=== PATIENT | female | born 1970 | race Two or more races ===

== ENCOUNTER 2018-06-11 07:06 | Day surgery (SDC) | payer MEDICAID ==
[~2018-06-11 07:06] MED LIST: Sodium Chloride 0.9% 10 ML Syringe FLUSH PRN; Sodium Chloride 0.9% 2.5 ML Syringe FLUSH PRN; ceFAZolin 1 GM in Premix Bag 1 BAG IV ONE
[2018-06-11] MEDS ORDERED: Bupivacaine 0.5% 30 ML SDV ONE (07:35)
[2018-06-11] MEDS ORDERED: Midazolam 1 MG/ML 2 ML SDV ONE ×2 (07:35→08:25)
[2018-06-11] MEDS ORDERED: fentaNYL 100 MCG/2 ML SDV ONE ×2 (07:36→08:39)
[2018-06-11] MEDS ORDERED: Lidocaine 2% 5 ML SDV ONE (07:37)
[2018-06-11] MEDS ORDERED: Propofol 200 MG/20 ML SDV ONE (07:40)
[2018-06-11] MEDS ORDERED: Rocuronium 10 MG/ML 10 ML Syringe ONE (07:41)
[2018-06-11] MEDS ORDERED: Scopolamine 1.5 MG Transdermal Patch TRDERM PRN (07:45)
--- NOTE | 2018-06-11 07:47 | PCM.PREANE ---
Preanesthetic Assessment - Anesthesia/Transfusion/Family Hx Anesthesia History: Prior Anesthesia Without Reaction Family History of Anesthesia Reaction: No Transfusion History: No Prior Transfusion(s) Intubation History: Unknown - Review of Systems General: No Symptoms Pulmonary: No Symptoms Cardiovascular: No Symptoms Gastrointestinal: Abdominal Pain Neurological: No Symptoms Other: Reports: None - Physical Assessment O2 Sat by Pulse Oximetry: 98 Respiratory Rate: 16 Vital Signs: Last Vital Signs Temp 36.5 C 06/11/18 07:44 Pulse 58 L 06/11/18 07:44 Resp 16 06/11/18 07:44 BP 137/66 06/11/18 07:44 Pulse Ox 98 06/11/18 07:44 Height: 1.52 m Weight: 56.245 kg ASA Class: 2 Mental Status: Alert & Oriented x3 Airway Class: Mallampati = 2 Dentition: Reports: Normal Dentition (uneven edges on front teeth) Thyro-Mental Finger Breadths: 3 Mouth Opening Finger Breadths: 3 ROM/Head Extension: Full Lungs: Clear to Auscultation, Normal Respiratory Effort Cardiovascular: Regular Rate, Regular Rhythm - Lab Values: Laboratory Last Values Urine HCG, Qual NEGATIVE (NEGATIVE) 06/11/18 07:20 - Allergies Allergies/Adverse Reactions: Allergies Allergy/AdvReac Type Severity Reaction Status Date / Time No Known Allergies Allergy Verified 06/10/18 10:33 - Blood Blood Available: No - Anesthesia Plan Pre-Op Medication Ordered: None - Acknowledgements Anesthesia Type Planned: General Anesthesia Pt an Appropriate Candidate for the Planned Anesthesia: Yes Alternatives and Risks of Anesthesia Discussed w Pt/Guardian: Yes Pt/Guardian Understands and Agrees with Anesthesia Plan: Yes PreAnesthesia Questionnaire HEENT History: Reports: Other (See Below) Other HEENT History: wears glasses Cardiovascular History: Reports: High Cholesterol Gastrointestinal History: Reports: Cholelithiasis, GERD 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: Endocrine/Metabolic History: Reports: Diabetes, Type II - Past Surgical History Female Surgical History: Reports: Hysterectomy - SUBSTANCE USE Smoking Status *Q: Never Smoker Recreational Drug Use History: No - HOME MEDS Home Medications: Home Meds Empagliflozin [Jardiance] 25 mg PO DAILY 06/10/18 [History] Simvastatin 10 mg PO DAILY 06/10/18 [History] metFORMIN [Glucophage] 500 mg PO Q12H 06/10/18 [History] - CURRENT (IN HOUSE) MEDS Current Meds: Current Medications Lactated Ringer's (Ringers, Lactated) 1,000 mls @ 125 mls/hr IV ASDIRECTED JENNY Sodium Chloride (Saline Flush) 10 ml FLUSH ASDIRECTED PRN PRN Reason: Keep Vein Open Sodium Chloride (Saline Flush) 2.5 ml FLUSH ASDIRECTED PRN PRN Reason: Keep Vein Open Discontinued Medications Bupivacaine HCl (Marcaine 0.5%) Confirm Administered Dose 30 ml .ROUTE .STK-MED ONE Stop: 06/11/18 07:36 Fentanyl (Sublimaze) Confirm Administered Dose 100 mcg .ROUTE .STK-MED ONE Stop: 06/11/18 07:37 Cefazolin Sodium/Dextrose 1 gm (/ Premix) 50 mls @ 100 mls/hr IV ONETIME ONE Stop: 06/10/18 17:57 Lidocaine (Xylocaine-Mpf 2%) Confirm Administered Dose 5 ml .ROUTE .STK-MED ONE Stop: 06/11/18 07:38 Midazolam HCl (Versed 1 Mg/Ml) Confirm Administered Dose 2 mg .ROUTE .STK-MED ONE Stop: 06/11/18 07:36 Propofol (Diprivan 20 Ml) Confirm Administered Dose 200 mg .ROUTE .STK-MED ONE Stop: 06/11/18 07:41
[2018-06-11] MEDS: Lactated Ringers 1,000 ML IV SCH ×2 (07:49→17:09)
[2018-06-11] MEDS ORDERED: Ondansetron 4 MG/2 ML SDV ONE ×3 (08:33→09:39)
[2018-06-11] MEDS ORDERED: Dexamethasone 4 MG/ML 5 ML MDV ONE (08:35)
[2018-06-11] MEDS ORDERED: Labetalol 100 MG/20 ML MDV ONE (08:58)
[2018-06-11] MEDS ORDERED: Arista AH Absorbable Hemostat ONE (09:34)
[2018-06-11] MEDS ORDERED: Glycopyrrolate 0.2 MG/ML SDV ONE (09:38)
[2018-06-11] MEDS ORDERED: Neostigmine Methylsulfate 1 MG/ML 5 ML Syringe ONE (09:38)
[2018-06-11] MEDS ORDERED: diphenhydrAMINE 50 MG/ML SDV IVPUSH PRN (10:08)
[2018-06-11] MEDS ORDERED: HYDROmorphone 2 MG/ML SDV IVPUSH PRN (10:08)
[2018-06-11] MEDS ORDERED: Promethazine 25 MG/ML SDV IM PRN (10:08)
[2018-06-11] MEDS ORDERED: Ondansetron 4 MG/2 ML SDV IVPUSH PRN (10:08)
[2018-06-11] MEDS ORDERED: Piperacillin/Tazobactam 3.375 GM in Sodium Chloride 0.9% 50 ML IV SCH (10:15)
--- NOTE | 2018-06-11 10:19 | PCM.OPNOTE ---
- General Post-Op/Procedure Note Date of Surgery/Procedure: 06/11/18 Operative Procedure(s): Laparoscopic cholecystectomy Findings: Gangrenous cholecystitis with hydrops Pre Op Diagnosis: Symptomatic cholecystitis Post-Op Diagnosis: Gangrenous cholecystitis Anesthesia Technique: General ET Tube Primary Surgeon: Sri Navarrete Fluid Replacement, Intraop: 1,000 Output, Urine Amount: 350 EBL in mLs: 50 Condition: Good
[2018-06-11] MEDS ORDERED: HYDROmorphone 2 MG/ML Syringe ONE (10:41)
--- NOTE | 2018-06-11 10:57 | PCM.POSTAN ---
POST ANESTHESIA ASSESSMENT - MENTAL STATUS Mental Status: Alert, Oriented - RESPIRATORY Respiratory Status: Respiratory Rate WNL, Airway Patent, O2 Saturation Stable - CARDIOVASCULAR CV Status: Pulse Rate WNL, Blood Pressure Stable - GASTROINTESTINAL GI Status: No Symptoms - PAIN Pain Score: 3 - POST OP HYDRATION Hydration Status: Adequate & Stable - OBSERVATIONS Free Text/Narrative:: no anesthesia problems
--- NOTE | 2018-06-11 12:09 | OR ---
SURGEON: YRAN IQBAL MD DATE OF PROCEDURE: 06/11/2018 PREOPERATIVE DIAGNOSIS: Symptomatic cholelithiasis. POSTOPERATIVE DIAGNOSES: 1. Intraabdominal adhesions. 2. Gangrenous cholecystitis. PROCEDURE PERFORMED: 1) Laparoscopic cholecystectomy. 2) Lysis of intra-abdominal adhesions ANESTHESIA: General endotracheal. FLUIDS: 1000 mL crystalloid. URINE OUTPUT: 350 mL. ESTIMATED BLOOD LOSS: 50 mL. FINDINGS: Necrotic and inflamed gallbladder containing multiple stones. Bile appeared hydropic. Multiple intraabdominal adhesions in the right upper quadrant. COMPLICATIONS: None. INDICATIONS: The patient is a 48-year-old diabetic female who presented with right upper quadrant pain. Right upper quadrant ultrasound revealed cholelithiasis. The patient and I discussed the need for a laparoscopic, possible open cholecystectomy. We discussed the procedure, expected perioperative course, and the risks including bleeding, infection, or damage to surrounding structures. The patient verbalized understanding and wishes to proceed. PROCEDURE IN DETAIL: The patient was brought into the OR and placed on the OR table in supine position. A time-out was completed verifying the patient's name, age, date of , allergies, and procedure to be performed. General endotracheal anesthesia was induced. The left arm was tucked at the patient's side and a Chadwick catheter placed. The abdomen was prepped and draped in usual standard fashion. I anesthetized the supraumbilical midline with 0.5% Marcaine plain. An 11 blade was used to make a 2 cm incision above the umbilicus. Cautery was used to dissect down into the level of subcutaneous fat. I bluntly dissected down to the level of the fascia. The fascia was elevated with Faustina's and incised sharply with the Metzenbaum scissors. A 12-mm Hema trocar was placed in the abdomen and the abdomen insufflated to a pressure of 12 mmHg. A 5-mm 30 degree scope was inserted into the abdomen and I inspected the area underneath my initial trocar placement. No damage to surrounding structures was noted. The patient was placed into reverse Trendelenburg position and airplaned slightly to the left. 5-mm trocars were placed under direct visualization in the following locations, one in the epigastric area and one 2 fingerbreadths below the right subcostal margin in the midclavicular line. I was unable to place my right flank port at first due to intraabdominal adhesions along the abdomen on the right side. Hook cautery and gentle blunt dissection were used to clear these adhesions away. Once this was performed, I was then able to place my 5 mm trocar along the right flank without difficulty. I did anesthetize the peritoneum along this side with 0.5% Marcaine plain to allow for better pain control postoperatively. I then turned my attention to the gallbladder. I was then able to initially grasp the gallbladder due to dense adhesions between the omentum and the gallbladder itself. Using hook cautery and gentle blunt dissection, I was able to sweep these adhesions down. I then grasped the dome of the gallbladder with an atraumatic grasper through the right lateral flank port and elevated it cranially. Again, there were dense adhesions along the proximal half of the gallbladder. I was able to sweep these away and identify the infundibulum. The infundibulum, however, was encased in a thickened rind of inflamed fat. I took down the medial and lateral attachments of the sides of the gallbladder to the liver bed. While doing this, I got into the gallbladder. Clear hydropic bile was spilled into the abdomen. This did decompress the gallbladder to where I could better manipulate the infundibulum. Using blunt dissection, I was able to clear away the adhesions around the cystic duct and artery. While attempting to clear away my cystic plate, the gallbladder wall kept tearing and falling apart, consistent with gangrenous cholecystitis. However, I was able to clear away enough of the proximal cystic plate to achieve my critical view. I doubly clipped and ligated my cystic duct and artery. I then attempted to remove the gallbladder from the remainder of the cystic plate. Once I was alf down with this, the body of the gallbladder tore away in half. The proximal half of the gallbladder was placed in an EndoCatch bag and removed through the supraumbilical port site. The gallbladder was full of stones and these spilled into the abdomen. I first concentrated on removing the top half of the gallbladder from the cystic bed. Using electrocautery, I was able to take the remainder of the gallbladder off the liver bed in a dome down fashion. I then placed this piece of the gallbladder and all of the gallstones that had spilled into the abdomen in an EndoCatch bag and removed it through the supraumbilical port site again. I then reinspected my operative field. The liver bed itself was hemostatic other than along the edges. I irrigated the abdomen with 3 L of normal saline until it ran clear. I then placed Ashli in the liver bed and monitored it for hemostasis. After several minutes, all the bleeding appeared to be done. A 10- mm round Siva drain was placed into the abdomen and along the right upper quadrant under the cystic plate. This was brought out through the right lateral flank port. It was secured to the skin with 2-0 silk. I then removed the 2 other 5 mm trocars under direct visualization and allowed the abdomen to desufflate. The supraumbilical port was removed as well. The fascia at the supraumbilical port site was closed with interrupted [id number] 0 Vicryl sutures. Given the spillage of bile and stones, I closed the skin with hailee. The skin at the 5 mm trocar sites was closed with hailee as well. Sterile dressings were applied. All counts were complete and correct at the end of the case. The patient tolerated the procedure well and was taken to PACU in stable condition. MOO SAMANIEGO /[id number] CHAN
[2018-06-11] MEDS ORDERED: HYDROmorphone 1 MG/ML Syringe IVPUSH PRN (14:16)
[2018-06-11] MEDS: Piperacillin/Tazobactam 3.375 GM in Sodium Chloride 0.9% 50 ML IV SCH ×2 (14:33→21:19)
[2018-06-11] MEDS: Acetaminophen/oxyCODONE 325-5 MG Tab PO PRN (15:40)
[2018-06-11] MEDS: Insulin Aspart 100 Units/ML 3 ML Pen SUBCUT SCH (21:24)
[2018-06-12] MEDS: Piperacillin/Tazobactam 3.375 GM in Sodium Chloride 0.9% 50 ML IV SCH ×2 (03:00→08:22)
[2018-06-12] MEDS: Acetaminophen/oxyCODONE 325-5 MG Tab PO PRN ×2 (03:05→09:32)
[2018-06-12 05:49] LABS: CHLORIDE,CL 103 mmol/L (98-107); SODIUM,NA 136 mmol/L (136-145)
--- NOTE | 2018-06-12 07:05 | PCM48HPAN ---
Post Anesthesia Note - EVALUATION WITHIN 48HRS OF ANESTHETIC Vital Signs in Normal Range: Yes Patient Participated in Evaluation: Yes Respiratory Function Stable: Yes Airway Patent: Yes Cardiovascular Function Stable: Yes Hydration Status Stable: Yes Pain Control Satisfactory: Yes Nausea and Vomiting Control Satisfactory: Yes Mental Status Recovered: Yes Resp Rate: 16
[2018-06-12] MEDS: Insulin Aspart 100 Units/ML 3 ML Pen SUBCUT SCH (08:08)
--- NOTE | 2018-06-12 11:00 | PCM.SURGPN ---
- General Info Date of Service: 06/12/18 Date of Surgery/Procedure: 06/11/18 POD#: 1 Functional Status: Reports: Pain Controlled, Tolerating Diet, Ambulating, Urinating, Incentive Spirometry. Denies: New Symptoms - Review of Systems General: Reports: No Symptoms HEENT: Reports: No Symptoms Pulmonary: Reports: No Symptoms Gastrointestinal: Reports: No Symptoms Genitourinary: Reports: No Symptoms Musculoskeletal: Reports: No Symptoms Skin: Reports: No Symptoms - Patient Data Vitals - Most Recent: Last Vital Signs Temp 36.8 C 06/12/18 07:59 Pulse 62 06/12/18 07:59 Resp 18 06/12/18 07:59 BP 98/56 L 06/12/18 07:59 Pulse Ox 95 06/12/18 03:45 Weight - Most Recent: 56.245 kg I&O - Last 24 Hours: Intake & Output 06/11/18 06/12/18 06/12/18 22:59 06:59 14:59 Intake Total 400 400 50 Output Total 990 1840 Balance -590 -1440 50 Lab Results Last 24 Hrs: Laboratory Results - last 24 hr 06/11/18 06/11/18 06/12/18 Range/Units 10:55 21:12 05:05 WBC 9.49 (4.0-11.0) K/uL RBC 3.90 L (4.30-5.90) M/uL Hgb 11.8 L (12.0-16.0) g/dL Hct 35.3 L (36.0-46.0) % MCV 90.5 (80.0-98.0) fL MCH 30.3 (27.0-32.0) pg MCHC 33.4 (31.0-37.0) g/dL RDW Std Deviation 47.3 (28.0-62.0) fl RDW Coeff of Panfilo 14 (11.0-15.0) % Plt Count 271 (150-400) K/uL MPV 10.50 (7.40-12.00) fL Nucleated RBC % 0.0 /100WBC Nucleated RBCs # 0 K/uL Sodium (136-145) mmol/L Potassium (3.5-5.1) mmol/L Chloride (98-107) mmol/L Carbon Dioxide (21.0-32.0) mmol/L BUN (7.0-18.0) mg/dL Creatinine (0.6-1.0) mg/dL Est Cr Clr Drug Dosing mL/min Estimated GFR (MDRD) ml/min Glucose (74-106) mg/dL POC Glucose 154 H 290 H (60-110) mg/dL Calcium (8.5-10.1) mg/dL Total Bilirubin (0.2-1.0) mg/dL AST (15-37) IU/L ALT (14-63) IU/L Alkaline Phosphatase (46-116) U/L Total Protein (6.4-8.2) g/dL Albumin (3.4-5.0) g/dL Globulin (2.6-4.0) g/dL Albumin/Globulin Ratio (0.9-1.6) 06/12/18 Range/Units 05:05 WBC (4.0-11.0) K/uL RBC (4.30-5.90) M/uL Hgb (12.0-16.0) g/dL Hct (36.0-46.0) % MCV (80.0-98.0) fL MCH (27.0-32.0) pg MCHC (31.0-37.0) g/dL RDW Std Deviation (28.0-62.0) fl RDW Coeff of Panfilo (11.0-15.0) % Plt Count (150-400) K/uL MPV (7.40-12.00) fL Nucleated RBC % /100WBC Nucleated RBCs # K/uL Sodium 136 (136-145) mmol/L Potassium 4.1 (3.5-5.1) mmol/L Chloride 103 (98-107) mmol/L Carbon Dioxide 26.2 (21.0-32.0) mmol/L BUN 17 (7.0-18.0) mg/dL Creatinine 0.5 L (0.6-1.0) mg/dL Est Cr Clr Drug Dosing 98.84 mL/min Estimated GFR (MDRD) > 60.0 ml/min Glucose 186 H (74-106) mg/dL POC Glucose (60-110) mg/dL Calcium 8.5 (8.5-10.1) mg/dL Total Bilirubin 0.2 (0.2-1.0) mg/dL AST 35 (15-37) IU/L ALT 42 (14-63) IU/L Alkaline Phosphatase 71 (46-116) U/L Total Protein 5.9 L (6.4-8.2) g/dL Albumin 2.5 L (3.4-5.0) g/dL Globulin 3.4 (2.6-4.0) g/dL Albumin/Globulin Ratio 0.7 L (0.9-1.6) Med Orders - Current: Current Medications Diphenhydramine HCl (Benadryl) 25 mg IVPUSH Q4H PRN PRN Reason: Itching Hydromorphone HCl (Dilaudid) 0.5 mg IVPUSH Q1H PRN PRN Reason: Pain (severe 7-10) Piperacillin Sod/Tazobactam (Sod 3.375 gm/ Sodium Chloride) 50 mls @ 100 mls/ hr IV Q6H [facility] Last Admin: 06/12/18 08:22 Dose: 100 mls/hr Insulin Aspart (Novolog) 0 unit SUBCUT ACBREAKFASTANDBED [facility]; Protocol Last Admin: 06/12/18 08:08 Dose: 1 units Ondansetron HCl (Zofran) 4 mg IVPUSH Q6H PRN PRN Reason: Nausea/Vomiting Oxycodone/Acetaminophen (Percocet 325-5 Mg) 2 tab PO Q4H PRN PRN Reason: Pain (moderate 4-6) Last Admin: 06/12/18 09:32 Dose: 2 tab Promethazine HCl (Phenergan) 12.5 mg IM Q6H PRN PRN Reason: Nausea Scopolamine (Transderm-Scop) 1.5 mg TRDERM Q72H PRN PRN Reason: Nausea Last Admin: 06/11/18 07:54 Dose: 1.5 mg Sodium Chloride (Saline Flush) 10 ml FLUSH ASDIRECTED PRN PRN Reason: Keep Vein Open Sodium Chloride (Saline Flush) 2.5 ml FLUSH ASDIRECTED PRN PRN Reason: Keep Vein Open Discontinued Medications Bupivacaine HCl (Marcaine 0.5%) Confirm Administered Dose 30 ml .ROUTE .STK-MED ONE Stop: 06/11/18 07:36 Dexamethasone (Dexamethasone) Confirm Administered Dose 20 mg .ROUTE .STK-MED ONE Stop: 06/11/18 08:36 Fentanyl (Sublimaze) Confirm Administered Dose 100 mcg .ROUTE .STK-MED ONE Stop: 06/11/18 07:37 Fentanyl (Sublimaze) Confirm Administered Dose 100 mcg .ROUTE .STK-MED ONE Stop: 06/11/18 08:40 Glycopyrrolate (Robinul) Confirm Administered Dose 1 mg .ROUTE .STK-MED ONE Stop: 06/11/18 09:39 Hydromorphone HCl (Dilaudid) 0.5 mg IVPUSH Q1H PRN PRN Reason: Pain (severe 7-10) Hydromorphone HCl (Dilaudid) Confirm Administered Dose 2 mg .ROUTE .STK-MED ONE Stop: 06/11/18 10:42 Last Admin: 06/11/18 10:43 Dose: 0.5 mg Cefazolin Sodium/Dextrose 1 gm (/ Premix) 50 mls @ 100 mls/hr IV ONETIME ONE Stop: 06/10/18 17:57 Last Admin: 06/11/18 13:03 Dose: Not Given Lactated Ringer's (Ringers, Lactated) 1,000 mls @ 125 mls/hr IV ASDIRECTED [facility] Last Admin: 06/11/18 17:09 Dose: 125 mls/hr Piperacillin Sod/Tazobactam (Sod 3.375 gm/ Sodium Chloride) 50 mls @ 100 mls/ hr IV Q8H [facility] Last Admin: 06/11/18 15:29 Dose: Not Given Influenza Virus Vaccine (Pharmacy To Dose - Influenza Vaccine) 1 each IM ONETIME ONE Stop: 06/12/18 09:44 Last Admin: 06/12/18 09:58 Dose: 1 each Influenza Virus Vaccine (Fluzone Quad [id number] Syringe) 60 mcg IM .ONCE ONE Stop: 06/12/18 09:46 Last Admin: 06/12/18 09:56 Dose: Not Given Labetalol HCl (Normodyne) Confirm Administered Dose 100 mg .ROUTE .STK-MED ONE Stop: 06/11/18 08:59 Lidocaine (Xylocaine-Mpf 2%) Confirm Administered Dose 5 ml .ROUTE .STK-MED ONE Stop: 06/11/18 07:38 Midazolam HCl (Versed 1 Mg/Ml) Confirm Administered Dose 2 mg .ROUTE .STK-MED ONE Stop: 06/11/18 07:36 Midazolam HCl (Versed 1 Mg/Ml) Confirm Administered Dose 2 mg .ROUTE .STK-MED ONE Stop: 06/11/18 08:26 Neostigmine Methylsulfate (Neostigmine) Confirm Administered Dose 5 mg .ROUTE .STK-MED ONE Stop: 06/11/18 09:39 Non-Formulary Medication (Ashli Ah Absorbable Hemostat) Confirm Administered Dose 1 each .ROUTE .STK-MED ONE Stop: 06/11/18 09:35 Ondansetron HCl (Zofran) Confirm Administered Dose 8 mg .ROUTE .STK-MED ONE Stop: 06/11/18 08:34 Ondansetron HCl (Zofran) Confirm Administered Dose 4 mg .ROUTE .STK-MED ONE Stop: 06/11/18 09:40 Ondansetron HCl (Zofran) Confirm Administered Dose 4 mg .ROUTE .STK-MED ONE Stop: 06/11/18 09:40 Propofol (Diprivan 20 Ml) Confirm Administered Dose 200 mg .ROUTE .STK-MED ONE Stop: 06/11/18 07:41 Rocuronium [place] (Zemuron) Confirm Administered Dose 100 mg .ROUTE .STK-MED ONE Stop: 06/11/18 07:42 - Exam Wound/Incisions: Healing Well, Dressing Dry and Intact General: Alert, Oriented Lungs: Normal Respiratory Effort Cardiovascular: Regular Rate GI/Abdominal Exam: Soft, Non-Tender, No Distention, No Mass, Other (Drain with scant serosanguinous fluid. No evidence of bile. ) Skin: Warm, Dry, Intact - Problem List & Annotations (1) Gangrenous cholecystitis SNOMED Code(s): 86219074 Code(s): K81.0 - ACUTE CHOLECYSTITIS Status: Acute Current Visit: Yes - Problem List Review Problem List Initiated/Reviewed/Updated: Yes - My Orders Last 24 Hours: Active Orders 24 hr Category Date Time Status Patient Status [ADT] Routine ADT 06/11/18 10:08 Active Communication Order [RC] PRN Care 06/11/18 15:15 Active Drain Management [RC] QSHIFT Care 06/11/18 10:11 Active Notify Provider Vital Signs [RC] PRN Care 06/11/18 10:09 Active Oxygen Therapy [RC] PRN Care 06/11/18 10:08 Active RT Incentive Spirometry [RC] Q1HWA Care 06/11/18 10:08 Active Ready for Discharge [RC] PER UNIT ROUTINE Care 06/12/18 10:56 Ordered Up ad Marcelina [RC] ASDIRECTED Care 06/11/18 10:08 Active Regular Diet [DIET] Diet 06/11/18 Dinner Active Acetaminophen/oxyCODONE [Percocet 325-5 MG] Med 06/11/18 10:08 Active 2 tab PO Q4H PRN HYDROmorphone [Dilaudid] Med 06/11/18 14:16 Active 0.5 mg IVPUSH Q1H PRN Insulin Aspart [NovoLOG] Med 06/11/18 21:00 Active See Protocol SUBCUT ACBREAKFASTANDBED Ondansetron [Zofran] Med 06/11/18 10:08 Active 4 mg IVPUSH Q6H PRN Piperacillin/Tazobactam [Piperacil-Tazobact] 3.375 gm Med 06/11/18 15:00 Active Sodium Chloride 0.9% [Normal Saline] 50 ml IV Q6H Promethazine [Phenergan] Med 06/11/18 10:08 Active 12.5 mg IM Q6H PRN diphenhydrAMINE [Benadryl] Med 06/11/18 10:08 Active 25 mg IVPUSH Q4H PRN Medication Orders Diphenhydramine HCl (Benadryl) 25 mg IVPUSH Q4H PRN PRN Reason: Itching Hydromorphone HCl (Dilaudid) 0.5 mg IVPUSH Q1H PRN PRN Reason: Pain (severe 7-10) Piperacillin Sod/Tazobactam (Sod 3.375 gm/ Sodium Chloride) 50 mls @ 100 mls/ hr IV Q6H JENNY Last Admin: 06/12/18 08:22 Dose: 100 mls/hr Infusion: 06/12/18 03:30 Dose: 100 mls/hr Admin: 06/12/18 03:00 Dose: 100 mls/hr Infusion: 06/11/18 21:49 Dose: 100 mls/hr Admin: 06/11/18 21:19 Dose: 100 mls/hr Infusion: 06/11/18 15:03 Dose: 100 mls/hr Admin: 06/11/18 14:33 Dose: 100 mls/hr Insulin Aspart (Novolog) 0 unit SUBCUT ACBREAKFASTANDBED JENNY; Protocol Last Admin: 06/12/18 08:08 Dose: 1 units Admin: 06/11/18 21:24 Dose: 3 units Ondansetron HCl (Zofran) 4 mg IVPUSH Q6H PRN PRN Reason: Nausea/Vomiting Oxycodone/Acetaminophen (Percocet 325-5 Mg) 2 tab PO Q4H PRN PRN Reason: Pain (moderate 4-6) Last Admin: 06/12/18 09:32 Dose: 2 tab Admin: 06/12/18 03:05 Dose: 2 tab Admin: 06/11/18 15:40 Dose: 2 tab Promethazine HCl (Phenergan) 12.5 mg IM Q6H PRN PRN Reason: Nausea Scopolamine (Transderm-Scop) 1.5 mg TRDERM Q72H PRN PRN Reason: Nausea Last Admin: 06/11/18 07:54 Dose: 1.5 mg Sodium Chloride (Saline Flush) 10 ml FLUSH ASDIRECTED PRN PRN Reason: Keep Vein Open Sodium Chloride (Saline Flush) 2.5 ml FLUSH ASDIRECTED PRN PRN Reason: Keep Vein Open - Plan Plan (Free Text/Narrative):: Drain removed this morning. Patient is doing well. Vitals are stable. Labs are within normal range. Her pain is under good control. She is good to discharge home.
== END 2018-06-12 15:45 | disposition home or self-care (01) ==
LOC: MW.SDS 07:06 → MW.MS 12:21 → MW.SDS 06-12 15:45
PROVIDERS: ATTEND Surgery
DX: K80.10 Calculus of gallbladder with chronic cholecystitis without obstruction (principal); K82.A1 Gangrene of gallbladder in cholecystitis; K82.1 Hydrops of gallbladder; E11.9 Type 2 diabetes mellitus without complications; E78.00 Pure hypercholesterolemia, unspecified; K21.9 Gastro-esophageal reflux disease without esophagitis; Z79.84 Long term (current) use of oral hypoglycemic drugs; Z79.899 Other long term (current) drug therapy
CPT/HCPCS: 36415; 47562; 80053; 81025; 82962; 85027; 88304; A9270; J1100; J1170; J1815; J2001; J2250; J2405; J2543; J2704; J3010; J3490; J7050; J7120; 00790